=== PATIENT | male | born 1990 | race Caucasian/White ===

== ENCOUNTER 2016-12-23 08:44 | Emergency (ER) | payer OTHER ==
[~2016-12-23] VITALS: Wt 76.0 kg
[2016-12-23 09:56] LABS: URINE BLOOD (Dip) POC Negative (NEGATIVE)
--- NOTE | 2016-12-23 09:57 | ERD ---
ER Documentation Chief Complaint Date/Time DATE: 12/23/16 TIME: 09:52 Chief Complaint DYSURIA X 3 MONTHS HPI Patient is a 26-year-old male who presents to the emergency department for concerns of dysuria 3 months. Patient reports burning pain with urination. Patient states that he has been to numerous hospitals as well as seen his primary care physician numerous times for his concerns. Patient states most recently saw his primary care physician yesterday. At that time patient underwent a prostate exam and was told that his prostate was swollen. Patient was given a prescription for Bactrim. States he has been reading the side effects of this medication online thus he stopped taking it. Patient also reports changes in his ejaculation and urinary hesitancy. Patient denies any frequency, hematuria, penile discharge, penile swelling, testicular swelling or pain. Patient denies any fevers, chills, nausea, vomiting, abdominal pain, flank pain or loss consciousness. Of note, patient did have a history of chlamydia 3 years ago. Patient states he took "3-4 red pills." Patient is anxious that his symptoms may have not been treated appropriately at that time. Patient is requesting STD testing as well as treatment today. ROS All systems reviewed and are negative except as per history of present illness. PMhx/Soc Medical and Surgical Hx: pt denies Surgical Hx History of Surgery: No Anesthesia Reaction: No Hx Neurological Disorder: No Hx Respiratory Disorders: No Hx Cardiac Disorders: No Hx Psychiatric Problems: No Hx Miscellaneous Medical Probl: Yes (UTI) Hx Alcohol Use: No Hx Substance Use: Yes (weed) Hx Tobacco Use: No Smoking Status: Former smoker FmHx Family History: No diabetes Physical Exam Vitals Vital Signs Date Time Temp Pulse Resp B/P Pulse Ox O2 Delivery O2 Flow Rate FiO2 12/23/16 08:57 98.7 69 18 140/83 99 Physical Exam GENERAL: Well-developed, well-nourished male. Appears in no acute distress. HEAD: Normocephalic, atraumatic. EYES: Pupils are equally reactive bilaterally. EOMs grossly intact. No conjunctival erythema. ENT: Moist mucous membranes. No uvula deviation. No kissing tonsils. NECK: Supple. No meningismus. Normal range of motion of the neck. LUNG: Clear to auscultation bilaterally. No rhonchi, wheezing, rales or coarse breath sounds. HEART: Regular rate and rhythm. No murmurs, rubs or gallops. ABDOMEN: Soft, nontender, and nondistended. Positive bowel sounds in all four quadrants. No rebound tenderness, no guarding. (-) McBurney's point tenderness. No CVA tenderness. BACK: No midline tenderness. EXTREMITIES: Equal pulses bilaterally. No peripheral clubbing, cyanosis or edema. No unilateral leg swelling. NEUROLOGIC: Alert and oriented. Moving all four extremities without any difficulty. Normal speech. Steady gait. SKIN: Normal color. Warm and dry. No rashes or lesions. Results 24 hrs Laboratory Tests Test 12/23/16 10:01 Bedside Urine pH (LAB) 7.0 Bedside Urine Protein (LAB) Negative Bedside Urine Glucose (UA) Negative Bedside Urine Ketones (LAB) Trace Bedside Urine Blood Negative Bedside Urine Nitrite (LAB) Negative Bedside Urine Leukocyte Esterase (L Negative Current Medications Medications (Trade) Dose Ordered Sig/Steve Route PRN Reason Start Time Stop Time Status Last Admin Dose Admin Ceftriaxone Sodium (Rocephin) 250 mg ONCE ONCE IM 12/23/16 10:00 12/23/16 10:01 DC 12/23/16 09:57 Lidocaine (Xylocaine 1% (Mdv) 20 ml) 20 ml ONCE ONCE SC 12/23/16 10:00 12/23/16 10:01 DC 12/23/16 09:58 Azithromycin (Zithromax) 1,000 mg ONCE ONCE PO 12/23/16 10:00 12/23/16 10:01 DC 12/23/16 09:58 Procedures/MDM ED COURSE: The patient was stable throughout ED course. I kept the patient and/or family informed of laboratory and diagnostic imaging results throughout the ED course. MEDICATIONS GIVEN: Rocephin, azithromycin Patient tolerated medication well with no adverse reactions. MEDICAL DECISION MAKING: This is a 26-year-old male who presents to the ED for concerns of dysuria and changes in ejaculation 3 months. Vital signs were reviewed. Patient was afebrile. Patient was not hypoxic. Patient requested STD testing today. Patient's urine will be sent for gonorrhea and Chlamydia culture. Results pending. Patient will be treated empirically for STDs today. Patient was given Rocephin IM and azithromycin here in the ED. Urine dip was negative for acute infection or hematuria. At this time, patient's presentation was consistent with dysuria. I have a much lower clinical concern for UTI, pyelonephritis, nephrolithiasis, appendicitis, phimosis, priapism, penile contusion, incarcerated hernia or strangulated hernia. Patient will be given information for urologist. Patient was advised to follow-up with the urologist for further management of his ongoing symptoms. DISCHARGE: At this time, patient is stable for discharge and outpatient management. RICE therapy and ROM exercises were advised to avoid stiffness. I have instructed the patient to follow-up with his/her primary care physician in 1-2 days. I have discussed with the patient the possibility of needing to see an contract management specialist for further workup and imaging if the pain persists. I have instructed the patient to promptly return to the ER for any new or worsening symptoms including increased pain, swelling, redness, warmth or fever. The patient and/or family expressed understanding of and agreement with this plan. All questions were answered. Home care instructions were provided. Departure Diagnosis: Primary Impression: Dysuria Condition: Stable Patient Instructions: Dysuria Referrals: JIMENA EDWARDS GALESH L. MD GUALTIERI, VINCENT HARDY,BRYCE SUH,TIKA BLUM MD= [facility] YOU HAVE RECEIVED A MEDICAL SCREENING EXAM AND THE RESULTS INDICATE THAT YOU DO NOT HAVE A CONDITION THAT REQUIRES URGENT TREATMENT IN THE EMERGENCY DEPARTMENT. FURTHER EVALUATION AND TREATMENT OF YOUR CONDITION CAN WAIT UNTIL YOU ARE SEEN IN YOUR DOCTORS OFFICE WITHIN THE NEXT 1-2 DAYS. IT IS YOUR RESPONSIBILITY TO MAKE AN APPOINTMENT FOR FOLOW-UP CARE. IF YOU HAVE A PRIMARY DOCTOR --you should call your primary doctor and schedule an appointment IF YOU DO NOT HAVE A PRIMARY DOCTOR YOU CAN CALL OUR PHYSICIAN REFERRAL HOTLINE AT IF YOU CAN NOT AFFORD TO SEE A PHYSICIAN YOU CAN CHOSE FROM THE FOLLOWING [facility]ESS [facility] CLINICS [facility] [address] [facility] [address] [facility]. [facility] [address] [facility] [address] [facility] [address] [facility] [address] [facility]. [facility] YOU HAVE RECEIVED A MEDICAL SCREENING EXAM AND THE RESULTS INDICATE THAT YOU DO NOT HAVE A CONDITION THAT REQUIRES URGENT TREATMENT IN THE EMERGENCY DEPARTMENT. FURTHER EVALUATION AND TREATMENT OF YOUR CONDITION CAN WAIT UNTIL YOU ARE SEEN IN YOUR DOCTORS OFFICE WITHIN THE NEXT 1-2 DAYS. IT IS YOUR RESPONSIBILITY TO MAKE AN APPOINTMENT FOR FOLOW-UP CARE. IF YOU HAVE A PRIMARY DOCTOR --you should call your primary doctor and schedule and appointment IF YOU DO NOT HAVE A PRIMARY DOCTOR YOU CAN CALL OUR PHYSICIAN REFERRAL HOTLINE AT . IF YOU CAN NOT AFFORD TO SEE A PHYSICIAN YOU CAN CHOSE FROM THE FOLLOWING OUR [facility] INSTITUTIONS: [facility] [address] [place] [address] [facility] [address] [place] [address] [facility] [address] [place] [address] Additional Instructions: Call your primary care doctor TOMORROW for an appointment during the next 1-2 days.See the doctor sooner or return here if your condition worsens before your appointment time. See referral information for urologist. MISSY OCHOA PA-C Dec 23, 2016 09:57
[2016-12-23] MEDS ORDERED: AZITHROMYCIN 250 MG TAB PO ONE (10:00)
[2016-12-23] MEDS ORDERED: CEFTRIAXONE 250 MG INJ IM ONE (10:00)
[2016-12-23] MEDS ORDERED: LIDOCAINE 1% (MDV) 20 ML INJ SC ONE (10:00)
[2017-01-06 16:18] LABS: URINE BLOOD (Dip) POC Negative (NEGATIVE)
== END 2016-12-23 11:08 | disposition home or self-care (01) ==
LOC: FTE 08:44
DX: R30.0 Dysuria (principal); Z87.891 Personal history of nicotine dependence
CPT/HCPCS: 81003; 96372; J0696; Z7502; Z7610

== ENCOUNTER 2016-12-28 22:43 | Emergency (ER) | payer OTHER ==
[~2016-12-28] VITALS: Ht 167.6 cm; Wt 86.0 kg
[2016-12-28 23:17] VITALS: Ht 167.6 cm; Wt 86.0 kg
[2016-12-29] MEDS ORDERED: TAMS-14 PO (02:33)
[2016-12-29] MEDS ORDERED: NAPR-260 PO (02:33)
[2016-12-29] MEDS ORDERED: LORA-441 PO (02:33)
--- NOTE | 2016-12-29 02:41 | ERD ---
ER Documentation Chief Complaint Date/Time DATE: 12/29/16 TIME: 02:40 Chief Complaint chest pain/sob x 2 hours. lungs clear HPI 26-year-old otherwise healthy male presents the emergency department for complaints of sudden onset chest pain, palpitations, and difficulty breathing which occurred 1 hour prior to arrival. Patient states he was out with his girlfriend and a small dinner and experienced the sensation soon after. He reports a 7 out of 10 burning sensation which is constant. He denies any exacerbating or alleviating factors. Patient states that he has experienced panic attacks with similar symptoms in the past but none have been this severe. He denies any history of cardiac disease, diabetes, high cholesterol, or hypertension. He denies any sudden in his family due to cardiac disease. He denies any recent immobilization, leg swelling, or recent surgery. Patient does state that he was recently seen at this emergency department and then again by his primary care provider for complaints of urinary retention and dysuria. Patient underwent to separate workups for UTI, pyelonephritis and sexually transmitted disease, which were unremarkable however his primary care placed him on antibiotics. Patient states that he is concerned that the antibiotics are damaging his kidneys. He states the antibiotics have not improved his symptoms thus far. Patient denies fever, chills, nausea, vomiting , diarrhea, hematuria, testicular swelling, rash, penile discharge or recent illness. ROS All systems reviewed and are negative except as per history of present illness. Medications Home Meds Active Scripts Naproxen* (Naprosyn*) 500 Mg Tablet, 500 MG PO BID Y for PAIN AND/OR INFLAMMATION, #30 TAB Prov:SARA FUCHS PA-C 12/29/16 Lorazepam* (Ativan*) 0.5 Mg Tablet, 0.5 MG PO Q8, #10 TAB Prov:SARA FUCHS PA-C 12/29/16 Tamsulosin Hcl* (Flomax*) 0.4 Mg Cap.er.24h, 0.4 MG PO BID, #30 CAP Prov:SARA FUCHS PA-C 12/29/16 Allergies Allergies: Coded Allergies: No Known Drug Allergies (Verified Allergy, Unknown, 12/28/16) PMhx/Soc History of Surgery: No Anesthesia Reaction: No Hx Neurological Disorder: No Hx Respiratory Disorders: No Hx Cardiac Disorders: No Hx Psychiatric Problems: No Hx Miscellaneous Medical Probl: Yes (UTI) Hx Alcohol Use: No Hx Substance Use: Yes (weed) Hx Tobacco Use: No Smoking Status: Never smoker Physical Exam Vitals Vital Signs Date Time Temp Pulse Resp B/P Pulse Ox O2 Delivery O2 Flow Rate FiO2 12/29/16 02:51 98.7 65 18 110/65 98 Room Air 12/28/16 23:17 98.3 78 20 115/68 98 Physical Exam Const: Well-developed, well-nourished, in mild distress Head: Atraumatic Eyes: Normal Conjunctiva ENT: Normal External Ears, Nose and Mouth. Neck: Full range of motion..~ No meningismus. Resp: Clear to auscultation bilaterally Cardio: Regular rate and rhythm, no murmurs Abd: Soft, non tender, non distended. Normal bowel sounds Skin: No petechiae or rashes Back: No midline or flank tenderness Ext: No cyanosis, or edema Neur: Awake and alert Psych: Normal Mood and Affect Procedures/MDM This is an otherwise healthy 26-year-old male presents the emergency department for complaints of sudden onset burning chest pain which occurred earlier this evening. Patient has a history of anxiety and recent urinary symptoms. EKG was performed and negative for acute abnormality. Vital signs reviewed. Patient normotensive, not tachycardic, not hypoxic and afebrile upon arrival. Physical exam unremarkable for any evidence of respiratory distress, or abnormal heart sounds. Patient denies history of cardiac disease or other chronic illness. Patient denies history of sudden in his family from cardiac event. He denies leg swelling, or recent surgery. At this time low suspicion for PE, DVT, acute coronary syndrome, or Boerhaave syndrome. Patient' s international heart score is currently 0. At this time further laboratory and imaging studies are not indicated. EKG: Reviewed by myself and by Dr. Luiz Franklin Rate/Rhythm: Normal Sinus Rhythm QRS, ST, T-waves: No changes consistent w/ acute ischemia Impression: No evidence of ischemia or arrhythmia Patient symptoms likely the result of gastro-esophageal reflux versus panic attack. I instructed the patient to follow-up with his primary care physician for close follow-up regarding his symptoms. Patient will be provided with antacid medication and short course of antianxiety medication. Patient to follow-up with his primary care provider regarding his ongoing urinary symptoms. I recommended for him to follow-up with a urologist if symptoms continue. Based on patient's history of present illness and physical examination the decision was made to discharge. There is no evidence of life threatening injuries or illnesses at this time. On re-examination, patient resting in no distress, stable vital signs, reports feeling better and safe for discharge with outpatient follow up with PMD in 1-2 days. Patient given return precautions. Departure Diagnosis: Primary Impression: Chest pain Chest pain type: unspecified Qualified Code: R07.9 - Chest pain, unspecified type Condition: Good Patient Instructions: Chest Pain, Uncertain Cause Additional Instructions: Call your primary care doctor TOMORROW for an appointment during the next 1-2 days.See the doctor sooner or return here if your condition worsens before your appointment time. SARA FUCHS PA-C Dec 29, 2016 02:41
[2016-12-29 02:51] VITALS: BP 110/65; PULSE 65; RESP 18; TEMP 98.7
== END 2016-12-29 02:51 | disposition home or self-care (01) ==
LOC: FTE 22:43
DX: R07.9 Chest pain, unspecified (principal)
CPT/HCPCS: 93005; Z7502